=== PATIENT | male | born 1960 | race African-American/Black ===

== ENCOUNTER 2016-11-23 08:30 | Day surgery (SDC) | payer OTHER ==
[~2016-11-23] VITALS: Ht 185.4 cm; Wt 142.3 kg
[2016-11-23 09:00] VITALS: Ht 185.4 cm; Wt 142.3 kg
[2016-11-23] MEDS ORDERED: LOSA1TAB20 PO (09:09)
[2016-11-23] MEDS ORDERED: GABA100C14 PO (09:09)
[2016-11-23] MEDS ORDERED: SMV40T PO (09:09)
[2016-11-23] MEDS ORDERED: AMLO-145 PO (09:09)
[2016-11-23] MEDS ORDERED: METF-731 PO (09:09)
[2016-11-23] MEDS ORDERED: METO50TA16 PO (09:09)
[2016-11-23] MEDS ORDERED: GLIM2TAB PO (09:09)
[2016-11-23] MEDS ORDERED: SITA100T8 PO (09:09)
[2016-11-23] MEDS ORDERED: FAMO20TA18 PO (09:09)
[2016-11-23] MEDS ORDERED: PIOG30TA26 PO (09:09)
[2016-11-23] MEDS ORDERED: AMP500 (09:09)
[2016-11-23] MEDS ORDERED: ASPI-535 PO (09:09)
[2016-11-23] MEDS ORDERED: FENTAnyl 50 MCG/ML VIAL ONE (09:27)
[2016-11-23] MEDS ORDERED: PROPOFOL 20 ML ONE (09:27)
[2016-11-23] MEDS ORDERED: MIDAZOLAM 1 MG/ML 2 ML INJ ONE (09:27)
[2016-11-23 09:30] VITALS: BP 123/60; PULSE 94; RESP 16
[2016-11-23 10:09] VITALS: BP 95/57; PULSE 82; RESP 21
--- NOTE | 2016-11-23 11:11 | GILP ---
DATE OF PROCEDURE: NAME OF PROCEDURES: Colonoscopy and biopsy. SURGEON: Margarito Perry MD PREOPERATIVE DIAGNOSIS: Screening colonoscopy. POSTOPERATIVE DIAGNOSES: 1. Colonoscopy all the way to the cecum. 2. Small sigmoid colon polyp was removed using the biopsy forceps. 3. Diverticulosis of the colon. 4. Internal hemorrhoids. INDICATION FOR THE PROCEDURE: Mr. Valentino Canseco is a 56-year-old male patient who was scheduled f or screening colonoscopy. The procedure and possible complications were well explained to the patient, he understood and conse nted to the procedure. DESCRIPTION OF PROCEDURE: Under the influence of anesthesia, the colonoscope was carefully introduc ed in the rectum and under direct vision, it was advanced all the way to the cecum. FINDINGS: The patient had a small sigmoid colon polyp and it was removed using the biopsy forceps. He was noted to have diverticulosis of the colon and internal hemorrhoids. He tolerated the procedure very well and there was no complication from the procedure. At the end o f the procedure, he was awake with stable vital signs and he was discharged home to the care of his family. IMPRESSION: 1. Colonoscopy all the way to the cecum. 2. Small sigmoid colon polyp was removed using the biopsy forceps. 3. Diverticulosis of the colon. 4. Internal hemorrhoids. PLAN: 1. Await histopathology report. 2. Next screening colonoscopy in 10 years. Dictated By: MARGARITO NOVOA/CANDE Conf#: [id number] DID#: [id number] CC: MARGARITO PERRY MD;*EndCC*
== END 2016-11-23 10:41 | disposition home or self-care (01) ==
LOC: GIL 08:30
PROVIDERS: ATTEND Internal Medicine Gastroenterology
DX: Z12.11 Encounter for screening for malignant neoplasm of colon (principal); D12.5 Benign neoplasm of sigmoid colon; K57.90 Diverticulosis of intestine, part unspecified, without perforation or abscess without bleeding; K64.8 Other hemorrhoids; I10 Essential (primary) hypertension; E11.9 Type 2 diabetes mellitus without complications; E78.5 Hyperlipidemia, unspecified; E66.9 Obesity, unspecified; Z68.41 Body mass index [BMI] 40.0-44.9, adult
CPT/HCPCS: 45380; 82962; 88305; J2250; J3010; Z7610